=== PATIENT | male | born 1965 | race Caucasian/White ===

== ENCOUNTER 2021-04-26 14:32 | Emergency (ER) | payer BC ==
[2021-04-26] MEDS ORDERED: Sodium Chloride 0.9% 2.5 ML Syringe FLUSH PRN (15:02)
[2021-04-26] MEDS ORDERED: Sodium Chloride 0.9% 10 ML Syringe FLUSH PRN (15:02)
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
[2021-04-26 15:51] LABS: BLOOD UREA NITROGEN,BUN 16 mg/dL (7.0-18.0); CARBON DIOXIDE,CO2 23.8 mmol/L (21.0-32.0); CHLORIDE,CL 98 mmol/L (98-107); GLUCOSE RANDOM 138 mg/dL (74-106); LIPASE 63 U/L (73-393); POTASSIUM,K 3.4 mmol/L (3.5-5.1); SODIUM,NA 135 mmol/L (136-148)
--- NOTE | 2021-04-26 15:58 | CR ---
For Patients: As a result of the Cures Act, medical imaging exams and procedure reports are released immediately into your electronic medical record. You may view this report before your referring provider. If you have questions, please contact your health care provider. INDICATION: Right-sided chest pain. TECHNIQUE: Portable upright AP view of the chest. COMPARISON: None. FINDINGS: Right-sided infusion port and catheter are noted. Catheter tip is near the expected cavoatrial junction. Heart size is within normal limits. Pulmonary vasculature is unremarkable. No airspace opacities are seen to suggest pneumonia. No appreciable pleural fluid on this single view study. No pneumothorax. IMPRESSION: No radiographic signs of acute thoracic disease. Dictated by Javed Mejía MD @ 04/26/2021 3:58:10 PM Dictated by: Javed Mejía MD @ 04/26/2021 15:58:22 (Electronically Signed)
[2021-04-26] MEDS ORDERED: Iopamidol 755 MG/ML 500 ML Multipack Bottle IVPUSH STA (16:21)
--- NOTE | 2021-04-26 17:45 | CT ---
For Patients: As a result of the Century Cures Act, medical imaging exams and procedure reports are released immediately into your electronic medical record. You may view this report before your referring provider. If you have questions, please contact your health care provider. INDICATION: Right upper quadrant pain. TECHNIQUE: CT abdomen and pelvis acquired with 100 mL Isovue 370 IV contrast. COMPARISON: None. FINDINGS: Lower chest: Normal heart size. No pericardial effusion. Mild bibasilar atelectasis. Tip of a presumed catheter is seen in the upper right atrium. Liver: No hepatic mass. Spleen: Normal size. Incidental splenule. Pancreas: No pancreatic mass. Gallbladder and bile ducts: Gallbladder is distended. 1.2 cm stone is seen in the gallbladder neck. Mild gallbladder wall thickening with pericholecystic inflammatory changes. Findings are consistent with acute cholecystitis. No significant bile duct dilatation. Kidneys: Surgical clips are seen adjacent to the right kidney. Small low-density lesion in the inferior pole is likely related to a cyst. A low-density lesion arising from the superior pole left kidney is also likely a cyst. No hydronephrosis. Adrenal glands: Unremarkable. GI tract: No abnormally dilated bowel to suggest obstruction. Appendix is normal. Vascular structures: Atherosclerotic changes. Normal caliber abdominal aorta. Lymph nodes: Presumed retroperitoneal lymph node dissection. No pathologically enlarged lymph nodes are identified. Miscellaneous: Multiple fat containing ventral hernias are noted. No acute complication. No free air. No free fluid. Pelvic Organs: Unremarkable urinary bladder. Prostate is mildly enlarged. Bones: Partial visualization of an intramedullary erlin in the right femur. Degenerative changes. Bilateral pars defects at L5 with out significant spondylolisthesis. IMPRESSION: 1. Cholelithiasis with CT findings consistent with acute cholecystitis. 2. Nonacute findings as noted. Dictated by Javed Mejía MD @ 04/26/2021 5:43:08 PM Please note that all CT scans at this facility use dose modulation, iterative reconstruction, and/or weight-based dosing when appropriate to reduce radiation dose to as low as reasonably achievable. Dictated by: Javed Mejía MD @ 04/26/2021 17:43:58 (Electronically Signed)
[2021-04-26] MEDS ORDERED: Piperacillin/Tazobactam 4.5 GM in Sodium Chloride 0.9% 100 ML IV ONE (18:03)
[2021-04-26] MEDS ORDERED: Dextrose 5%-Lact Ringers w/KCl 1,000 ML IV SCH (18:15)
== END 2021-04-26 19:00 | disposition left against medical advice (07) ==
LOC: MW.ED 14:32
DX: K80.10 Calculus of gallbladder with chronic cholecystitis without obstruction (principal); Z79.84 Long term (current) use of oral hypoglycemic drugs
CPT/HCPCS: 36415; 71045; 74177; 80053; 81003; 83690; 85025; 87040; 96365; 99284; J2543; Q9967